=== PATIENT | female | born 1985 | race Caucasian/White ===

== ENCOUNTER 2023-02-08 21:48 | Emergency (ER) | payer BC, SELFPAY ==
[2023-02-08 21:50] VITALS: BP 122/81; PULSE 105; RESP 16; TEMP 36.8; O2SAT 99
[2023-02-08 22:36] LABS: Basophils Absolute Auto 0.1 K/mm3 (0.0-0.1); Basophils Percent Auto 0.4 % (0.2-1.2); Eosinophils Percent Auto 0.2 % (0-4.4); Hematocrit 38.5 % (37.0-47.0); Hemoglobin 13.6 g/dL (12.0-15.0); Immature Granulocyte Absolute 0.04 K/mm3 (0.00-0.031); Immature Granulocyte Percent A 0.3 % (0-0.5); Lymphocytes Absolute Auto 1.95 K/mm3 (0.9-3.2); Lymphocytes Percent Auto 17.1 % (18.3-44.2); Mean Corpuscular HGB Conc 35.3 g/dl (32-36); Mean Corpuscular Hemoglobin 32.7 pg (26-34); Mean Corpuscular Volume 92.5 fl (80-100); Mean Platelet Volume 10.2 fl (7.4-10.4); Monocytes Absolute Auto 0.8 K/mm3 (0.1-0.6); Monocytes Percent Auto 6.8 % (2.6-8.5); Neutrophils Absolute Auto 8.6 K/mm3 (1.3-6.7); Neutrophils Percent Auto 75.2 % (45.5-73.1); Platelet Count Result 268 k/mm3 (150-375); Red Blood Count 4.16 M/mm3 (4.2-5.4); Red Cell Distribution Width 12.8 % (11.5-14.5); White Blood Count 11.4 K/mm3 (4.5-10.0)
[2023-02-08 22:37] LABS: Appearance Urine Clear (Clear); Bilirubin Urine Negative (Negative); Blood Urine Negative (Negative); Color Urine Yellow (Yellow); Glucose Urine UA Negative (Negative); Ketones Urine Negative (Negative); Leukocyte Esterase Ur Negative LEU/UL (Negative); Nitrate Urine Negative (Negative); Protein Urine Negative (Negative); Specific Grav Ur 1.006 (1.001-1.035); Urobilinogen Urine 0.2 mg/dL (<2.0)
[2023-02-08 22:51] LABS: Amphetamine Screen Urine Negative (Negative); Barbiturate Screen Urine Negative (Negative); Benzodiazepines Screen Urine Negative (Negative); Cannabinoid Screen Urine Negative (Negative); Cocaine Screen Urine Negative (Negative); Methadone Screen Urine Negative (Negative); Opiate Screen Urine Negative (Negative); Phencyclidine Screen Urine Negative (Negative)
[2023-02-08 22:53] LABS: Alanine Aminotransferase 20 U/L (6-35); Albumin Level 4.4 g/dL (3.5-5.1); Alkaline Phosphatase 75 U/L (38-126); Anion Gap 8 mmol/L (8-16); Aspartate Amino Transferase 24 U/L (14-36); Bilirubin,Total 0.6 mg/dL (0.2-1.3); Blood Urea Nitrogen 8 mg/dL (7-17); Calcium 8.9 mg/dL (8.4-10.2); Carbon Dioxide 26 mmol/L (22-30); Chloride 104 mmol/L (98-107); Estimated CRCL calculation 102 ml/min; Estimated Glomerular Filt Rate > 60; Glucose 100 mg/dL (65-110); Potassium 3.4 mmol/L (3.4-5.0); Sodium 138 mmol/L (137-145)
[2023-02-08 23:00] LABS: Acetaminophen < 10 ug/mL (10-30); Salicylate < 1.0 mg/dL (2-20)
[2023-02-08 23:03] LABS: Ethanol < 10 mg/dL (<10)
[2023-02-08 23:14] LABS: SARS-CoV-2 RNA PCR Negative
[2023-02-08 23:19] LABS: Add Urine Microscopic? NO
--- NOTE | 2023-02-09 00:03 | ED.PSYCH ---
HPI - Psych General Chief Complaint: Psychiatric Symptoms <Lexii Hughes PA-C - Last Filed: 02/09/23 15:25> Stated Complaint: si <Lexii Hughes PA-C - Last Filed: 02/09/23 15:25> Time Seen by Provider: 02/08/23 22:56 <Lexii Hughes PA-C - Last Filed: 02/09/23 15:25> Source: patient <FLAQUITA Sood Last Filed: 02/09/23 15:25> Mode of arrival: ambulatory <Lexii Hughes PA-C - Last Filed: 02/09/23 15:25> Limitations: no limitations <Lexii Hughes PA-C - Last Filed: 02/09/23 15:25> History of Present Illness HPI Narrative: Patient is a 38-year-old female who presents to the ED with report of depression with suicidal ideation. Patient reports a history of depression and anxiety. She was previously on citalopram, trazodone, BuSpar, prn Propranolol. Patient reports her primary care doctor had previously been prescribing her medications, but she was referred to a new telehealth psychiatrist on Sunday. The psychiatrist decided to change her medications, wean her from the citalopram, stop trazodone, and start fluvoxamine and hydroxyzine as needed. Patient has taken the new medications over the last 2 days, but reported feeling intermittently somewhat fuzzy, dizzy yesterday and more shaky and jittery today. She reports being very labile with her emotions today, crying frequently, and having suicidal thoughts that she would rather just not be here again tomorrow. Patient states she has had suicidal thoughts in the past, but they have never been this strong. She denies any previous suicide attempts or self-harm attempts. She denies any homicidal ideation or hallucinations. <Lexii Hughes PA-C - Last Filed: 02/09/23 15:25> Related Data Home Medications: Home Medications Medication Instructions Recorded Confirmed buspirone 10 mg tablet mg 02/09/23 citalopram 40 mg tablet 30 mg 02/09/23 fluticasone propionate 50 intranasal 02/09/23 mcg/actuation nasal spray,suspension fluvoxamine 25 mg tablet mg 02/09/23 hydroxyzine HCl 25 mg tablet mg 02/09/23 propranolol 20 mg tablet mg 02/09/23 trazodone 50 mg tablet mg 02/09/23 <Lexii Hughes PA-C - Last Filed: 02/09/23 15:25> Allergies/Adverse Reactions: Allergies Allergy/AdvReac Type Severity Reaction Status Date / Time No Known Allergies Allergy Verified 02/09/23 06:41 <Lexii Hughes PA-C - Last Filed: 02/09/23 15:25> Review of Systems Review of Systems: CONSTITUTIONAL: Denies fever, chills, or sweats. ENT: Denies rhinorrhea, congestion, sore throat. CARDIOVASCULAR: Denies chest pain, palpitations, or edema. RESPIRATORY: Denies cough or dyspnea. GASTROINTESTINAL: Denies abdominal pain, nausea, vomiting, or diarrhea. GENITOURINARY: Denies dysuria or hematuria. NEUROLOGIC: See HPI. PSYCHIATRIC: See HPI. <Lexii Hughes PA-C - Last Filed: 02/09/23 15:25> All systems reviewed & are unremarkable except as noted in HPI and below <Lexii Hughes PA-C - Last Filed: 02/09/23 15:25> PMFSH Past Medical History Medical History: Medical History (Updated 02/09/23 @ 00:13 by Lexii Hughes PA-C) Anxiety Depression OCD (obsessive compulsive disorder) <Lexii Hughes PA-C - Last Filed: 02/09/23 15:25> Surgical History Surgical History: Surgical History No pertinent past surgical history <Lexii Hughes PA-C - Last Filed: 02/09/23 15:25> Social History Social History: Social History Substance use type: does not use <Lexii Hughes PA-C - Last Filed: 02/09/23 15:25> Exam Narrative: GENERAL: Well appearing, obese, non-toxic, in no acute distress. HEAD: Normocephalic, atraumatic. NECK: Supple. No adenopathy, no masses. RESPIRATORY: Airway patent, respirations nonl
[2023-02-09 00:20] LABS: Pregnancy On Board Control Positive; Urine Pregnancy Test Negative
--- NOTE | 2023-02-09 02:41 | PC.NURSE ---
Per provider, SOMMER Hughes, sitter no longer needs a sitter.
[2023-02-09] MEDS: CITALOPRAM HYDROBROMIDE 10 MG TABLET 20 MG PO (09:00)
[2023-02-09] MEDS: busPIRone HCL 10 MG TABLET PO (09:00)
--- NOTE | 2023-02-09 09:36 | PC.NURSE ---
pts family up to the desk for the 5th time since 0700 asking about the status of transfer. again made aware that transport will be here at 1030
[2023-02-09 09:54] VITALS: BP 133/80; PULSE 90; RESP 16; TEMP 36.8; O2SAT 100
[2023-02-09 10:00] VITALS: BP 133/80; PULSE 95; RESP 20; TEMP 36.8; O2SAT 100
--- NOTE | 2023-02-09 12:30 | PC.NURSE ---
received call from [facility] wanting update on [facility]. states pt is in route to them. notified that report was never called to them. report given to matthew charles at [id number]
== END 2023-02-09 10:00 ==
PROVIDERS: Emergency Medicine; Emergency Provider Physician Assistant; PCP Internal Medicine
DX: F32.A Depression, unspecified (principal); R45.851 Suicidal ideations; Z20.822 Contact with and (suspected) exposure to COVID-19; F41.9 Anxiety disorder, unspecified
CPT/HCPCS: 36415; 80053; 80307; 81003; 81025; 84443; 85025; 99285; A9270; U0003; U0005